=== PATIENT | female | born 1960 | race Caucasian/White ===

== ENCOUNTER 2023-03-27 10:04 | Outpatient (AMB) | payer OTHER, SELFPAY ==
--- NOTE | 2023-03-27 10:53 | AM.OFFWIN_ITS ---
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 Reports a 6 day history productive cough with yellow sputum, and mildly sore throat. Denies any known exposure to sick contacts. Denies any fever or chills. Denies any GI symptoms. Took a home COVID test which was negative. [facility] Social History Patient Tobacco Use Status: Never used Tobacco Review of Systems Const All systems reviewed & are unremarkable except as noted in HPI and below Physical Exam Vital Signs: Last Vital Signs Temp 97 F 03/27/23 10:58 Pulse 89 03/27/23 10:58 BP 104/62 03/27/23 10:58 Pulse Ox 98 03/27/23 10:58 Oxygen Delivery Method Room Air 03/27/23 10:58 BMI result Body Mass Index 25.3 Const General: cooperative, healthy appearing and no acute distress HEENT Head: Yes normal to inspection Ears: hearing grossly normal bilaterally General nose exam: Normal external nose present Mouth: Normal oral and palatal mucosa present Throat: Yes posterior oropharynx abnormal (Mild erythema) Neck Neck: Yes no lymphadenopathy Resp Effort & Inspection: normal respiratory effort Auscultation: clear to auscultation bilaterally and rhonchi upper bilaterally Cardio Jugular venous distension: no JVD Palpation: normal PMI Rate: regular rate Rhythm: regular rhythm Skin General skin exam: no rashes or lesions noted Extrem General: Yes capillary refill normal and Yes no clubbing, cyanosis or edema Psych Appearance: grossly normal Mental Status: mental status grossly normal Speech and movement: Normal speech and movement present Assessment & Plan Assessment & Plan (1) Upper respiratory infection: Code(s): J06.9 - Acute upper respiratory infection, unspecified Qualifiers: URI type: unspecified viral URI Qualified Code(s): J06.9 - Acute upper respiratory infection, unspecified Plan: Discussed with patient that symptoms are likely related to viral illness. Encourage conservative measures including rest, hydration, [id number] cold/flu medications. COVID/flu/RSV swab obtained today in the office. Patient notified she will be made aware of results once these are available. I am going to send her azithromycin to fill if she does not improve with conservative measures. We reviewed indications, use, possible s/e of [place]by. She should return to the clinic if symptoms worsen, or if she does not improve with treatment. She verbalizes understanding and agrees to plan. Orders: Orders SARS-CoV2/FLU/RSV Today J06.9 - Acute upper respiratory infection, unspecified Medications: New azithromycin For 250 mg dose pack: take 500 mg today (day 1), then 250 mg for 4 days (days 2-5) PO 6 tabs 0RF J06.9 - Acute upper respiratory infection, unspecified Coding Level of Care Code Est Pt Level 3 (22330) Diagnoses Viral upper respiratory tract infection J06.9 URI type: unspecified viral URI
[2023-03-27 10:58] VITALS: BP 104/62; PULSE 89; TEMP 36.1; O2SAT 98; BMI 25.3
== END 2023-03-27 11:56 | disposition home or self-care (01) ==
PROVIDERS: PCP Internal Medicine; Visit Provider Nurse Practitioner Family
DX: J06.9 Acute upper respiratory infection, unspecified (principal)
CPT/HCPCS: 99213

== ENCOUNTER 2023-03-27 11:36 | Outpatient (REF) | payer OTHER, SELFPAY ==
[2023-03-27 21:05] LABS: Influenza A PCR NEGATIVE (Negative); Influenza B PCR NEGATIVE (Negative); Resp Syncy Virus RNA Qual PCR NEGATIVE (Negative); SARS COV2 PCR INHOUSE NEGATIVE (Negative)
== END 2023-03-27 11:37 | disposition home or self-care (01) ==
LOC: HO.LAB 11:36
PROVIDERS: Visit Provider Nurse Practitioner Family
DX: Z11.52 Encounter for screening for COVID-19 (principal); J06.9 Acute upper respiratory infection, unspecified
CPT/HCPCS: 0241U